=== PATIENT | male | born 2005 ===

== ENCOUNTER 2024-09-17 14:00 | Inpatient (IN) | payer MEDICAID, SELFPAY ==
[2024-09-17 14:44] VITALS: BP 136/80; PULSE 78; RESP 16; TEMP 36.6; O2SAT 99; BMI 23.5
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
--- NOTE | 2024-09-17 17:06 | PC.NURSE ---
Rosemary was admitted to [facility]3 at 1419 from [facility] ED on CV for treatment of mood disorder with SI. Pt signed a 3 day notice after the CV. Pt self presented to ED self reporting that he had tried to asphyxiate himself using his own hands, passed out and ?went to ED. Stressors include having recently become a father 4 months ago, recently moved to [facility] from [place], is unemployed and his mother is threatening to murtaza for custody of his daughter. Pt denies mood disturbance, denies anxiety, denies ah and vh, denies current si or hi, denies physical complaint. He does not have any outpatient providers, does not take medications. This is his first IPLOC. Pt is alert, fully oriented, calm and cooperative with admssion. Appetite is good, Sleep is poor. Patient tox screen was positive for benzos ( rec ativan 1mg in ED) and THC. He reports using marijuana every day, drinking 2 drinks twice per month. Safety Checks are q 15 minutes
[2024-09-17 20:00] VITALS: BP 138/75; PULSE 72; RESP 16; TEMP 37.2; O2SAT 97
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
[2024-09-18 08:30] VITALS: BP 121/61; PULSE 57; RESP 18; TEMP 37.1; O2SAT 97
[2024-09-18 20:00] VITALS: BP 137/69; PULSE 65; RESP 16; TEMP 37.1; O2SAT 99
[2024-09-19 08:00] VITALS: BP 133/73; PULSE 66; TEMP 36.8; O2SAT 100
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
[2024-09-19 20:00] VITALS: BP 132/61; PULSE 66; RESP 16; TEMP 36.9; O2SAT 97
[2024-09-20 07:53] VITALS: BP 128/60; PULSE 61; RESP 16; TEMP 36.6; O2SAT 99
[2024-09-20 08:04] VITALS: BP 128/60; PULSE 61; RESP 16; TEMP 36.6; O2SAT 99
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
[2024-09-20 20:00] VITALS: BP 116/66; PULSE 100; RESP 18; TEMP 36.8; O2SAT 96
[2024-09-21 07:31] VITALS: BP 107/58; PULSE 68; RESP 16; TEMP 36.7; O2SAT 98
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
== END 2024-09-21 09:59 | disposition home or self-care (01) | DRG 751 ==
PROVIDERS: Admitting Provider Psychiatry & Neurology Psychiatry; Responsible Provider Registered Nurse; Visit Provider Psychiatry & Neurology Psychiatry
DX: F33.9 Major depressive disorder, recurrent, unspecified (principal); R45.851 Suicidal ideations; F43.10 Post-traumatic stress disorder, unspecified; F43.29 Adjustment disorder with other symptoms; M25.561 Pain in right knee; G89.21 Chronic pain due to trauma; F17.210 Nicotine dependence, cigarettes, uncomplicated; Z71.6 Tobacco abuse counseling; Z91.51 Personal history of suicidal behavior

== ENCOUNTER → 2024-09-17 14:00 | Outpatient (BNV) | payer OTHER, SELFPAY | PROVIDERS: Admitting Provider Psychiatry & Neurology Psychiatry; Responsible Provider Registered Nurse; Visit Provider Psychiatry & Neurology Psychiatry | DX: F43.11 Post-traumatic stress disorder, acute (principal); F43.29 Adjustment disorder with other symptoms | CPT/HCPCS: 99231; 99232 ==

== ENCOUNTER → 2024-09-17 14:00 | Outpatient (BNV) | payer MEDICAID, SELFPAY | PROVIDERS: Admitting Provider Psychiatry & Neurology Psychiatry; Responsible Provider Registered Nurse; Visit Provider Nurse Practitioner Family | DX: M25.561 Pain in right knee (principal); G89.29 Other chronic pain | CPT/HCPCS: 99222 ==